=== PATIENT | female | born 1950 | race Caucasian/White ===

== ENCOUNTER 2016-10-01 17:22 | Observation (INO) ==
[2016-10-01] MEDS ORDERED: NS + KCL 20 MEQ 1,000 ML IV ONE (18:15)
[2016-10-01] MEDS ORDERED: TYLENOL PO PRN (18:59)
[2016-10-01] MEDS ORDERED: ZOFRAN IV PRN (18:59)
--- NOTE | 2016-10-01 19:38 | HISTORY AND PHYSICAL ---
CHIEF COMPLAINT: Dehydrated. HISTORY OF PRESENT ILLNESS: This is a 66-year-old white female that normally is fairly healthy. She recently, however, has had several recurrent urinary tract infections, She completed a course of Augmentin last week for documented UTI with Klebsiella pneumoniae sensitive to Augmentin. At the later end of her therapy, she developed frequent loose stools. Of note, this patient has had previous gastric jejunal bypass many years ago and is plagued with loose stools on a regular basis. Her loose stools persisted through last weekend through the holidays and subsequently was brought to my attention on the day of admission. Laboratory data revealed a BUN of 40, a creatinine of 4.5 and so she was subsequently admitted for IV fluids. She denies any systemic symptoms. She denies any headaches, passing out or fainting. No fever or chills. She does have the overall loose stools, but that is not unusual for her. She has had no melena or hematochezia. She has borderline on a creatinine of anywhere from 1.5 to 2 over the last several years. She did have a colonoscopy 03/27/2016 which revealed no polyps other then a tortuosity of the sigmoid and transverse colon. PAST MEDICAL HISTORY: She has a long history of recurrent atrial fibrillation, but has been in normal sinus rhythm now for the last many years. Severe osteoarthritis status post bilateral total knee replacements. Severe hammer toes of the feet, status post bilateral surgical correction, history of DVT/PTE many years ago. Long history of hypertension. Remote history of morbid obesity. As stated, status post original gastrojejunal obesity bypass surgery. She also has had a long history of malabsorption syndrome with deficiency in B12, B6, B1 , and magnesia as well as potassium. CURRENT MEDICATIONS: Warfarin 2.5 mg a day. Triamterene HCT 75/50 two at bedtime. Toprol-XL 25 mg. Uloric 40 mg a day. Klor-Con 20 mEq 2 a day. Calcium over the counter. Magnesium 400 mg over the counter. ALLERGIES: To no known drugs. SOCIAL HISTORY: She is a white female. She does not smoke or drink. She normally is very active. She has 2 children. Both grown. One granddaughter. PHYSICAL EXAMINATION:BP 110/78 , HR 75 , RR 16 , Tmp 97.5 GENERAL: Shows a well-developed, white female, slightly dried texture to the skin with increased tenting. HEENT: Tympanic membranes are clear. Pupils equally round, reactive. Fundi benign. Nasal mucosa is moist. Oropharynx is clear. NECK: Supple with flat jugular venous. LUNGS: Clear. HEART: With a regular rate and rhythm. She is not in atrial fibrillation today. ABDOMEN: Soft, nontender, no masses. Good femoral pulses. No bruits. MUSCULOSKELETAL/NEUROLOGIC: Intact with tenting of the skin. No peripheral edema, clubbing or cyanosis. LABORATORY DATA: Urinalysis: Specific gravity 1.020, 1+ blood, 20-30 red cells , 10-20 white cells, 1+ bacteria. Sodium 135, potassium 3.76, chloride 103, CO2 19, BUN of 40 , creatinine 4.5, glucose 110, liver enzymes are normal. White blood cell count was 12, hemoglobin and hematocrit 12 and 38, MCV of 90, platelets 409,000, 65 polys, 23 lymphs, PT 2.1. IMPRESSION: 1. Chronic kidney disease with acute exacerbation. Most likely prerenal in nature due to recent episode of diarrhea. 2. Must be concerned with possible C. Difficile. 3. Long history of hypertension. 4. Long history of atrial fibrillation. 5. Remote history of pulmonary thromboembolism/deep venous thrombosis. She is currently therapeutic on her international normalized ratio . PLAN: 1. We will admit to [facility] For IV fluid rehydration as an outpatient. 2. We will check stool cultures. 3. We will follow up with laboratory data following hydration. 4. We will hold her diuretic therapy. 5. We do have a culture of her urine pending. cc: MD RENETTA Zhu
[2016-10-01] MEDS ORDERED: DIFLUCAN PO ONE (20:23)
[2016-10-01] MEDS ORDERED: NS 1,000 ML IV PRN (21:00)
[2016-10-01] MEDS: ULORIC PO SCH (21:19)
[2016-10-01] MEDS: TOPROL XL PO SCH (21:19)
[2016-10-02 06:35] LABS: MANUAL DIFF NEEDED? NO
[2016-10-02 07:13] LABS: BASO% 0.3 % (0.0-0.8); HEMOGLOBIN 10.8 g/dL (12.0-16.0); IMM GRAN# 0.02 X1000 (0.0-0.04); IMM GRAN% 0.3 % (0.0-0.5); LYMPH# 1.43 X1000 (1.2-3.4); LYMPH% 21.2 % (20.5-51.1); MCH 28.4 PG (27-31); MCHC 31.8 g/dL (33-37); MCV 89.5 FL (81-99); MONO# 0.61 X1000 (0.11-0.59); MONO% 9.1 % (1.7-9.3); MPV 10.7 FL (7.4-10.4); NEUT% 66.1 % (42.2-75.2); PLT 254 X1000 (130-400)
[2016-10-02 07:29] LABS: INR 1.74 (0.86-1.15); PROTIME 20.5 Seconds (12.1-15.5)
[2016-10-02 07:48] LABS: CALCIUM 7.9 mg/dL (8.8-10.2); POTASSIUM 3.4 mmol/L (3.5-5.1); TOTAL BILIRUBIN 0.3 mg/dL (0.20-1.00); TOTAL PROTEIN 5.4 g/dL (6.3-8.3)
[2016-10-02] MEDS ORDERED: NS 1,000 ML IV PRN ×3 (08:22→20:55)
[2016-10-02] MEDS ORDERED: NS 1,000 ML IV ONE (08:30)
[2016-10-02 10:07] LABS: UR CREAT RANDOM 63.5 mg/dL (11-20)
--- NOTE | 2016-10-02 15:01 | Diag Imaging Result Doc PS360 ---
EXAM: US RENAL 2 (RETROPER) COMPLETE HISTORY: mayte/arf TECHNIQUE: Real-time transabdominal evaluation of the kidneys and bladder. COMPARISON: None. FINDINGS: Right kidney: 9.6 cm..centimeters in length. Renal echotexture is within normal limits.. There is no hydronephrosis or focal renal mass. There is a seven mm calculus right lower pole. Left kidney: 7.1 centimeters in length. Renal echotexture is within normal limits.. There is no hydronephrosis or focal renal mass. There is a 9 mm calculus left lower pole. Bladder: No focal abnormality is appreciated. IMPRESSION: Bilateral nephrolithiasis. No hydronephrosis. Electronically signed by Paula Yip 10/02/2016 2:59 PM
--- NOTE | 2016-10-02 15:02 | CONSULTATION ---
DATE OF CONSULTATION: 10/02/2016 REASON FOR ADMISSION: Dehydration and elevated creatinine. REASON FOR CONSULTATION: Acute kidney injury on CKD stage 3. CONSULTING PHYSICIAN: Dr. Albino Pulido. HPI: Ms Avila is a 66-year-old white female who has a history of renal insufficiency with a baseline creatinine noted at 1.5-2 over the last 6 years. Patient has recently had a history of documented urinary tract infection with Klebsiella pneumoniae which was sensitive to Augmentin. She was started on this last week and had finished her last dose on Wednesday. Patient stated that she developed loose stools by Wednesday and continued to have loose stools throughout the week and over the weekend, subsequently was brought to Dr. Pulido's attention that she had loose stools are for multiple days and labs were drawn indicating a BUN of 40 with a creatinine of 4.5. She was admitted to the hospital overnight from yesterday for admission for IV fluids and rehydration and potassium replacement. She denies any chest pain. No increased work of breathing. No recent falls. No complaints of headache, passing out or fainting. No nausea, vomiting. No fever or chills. Chronic loose stools for 7 days. No melena or hematochezia. Patient denies any pain at this time. PAST MEDICAL HISTORY: Patient has had chronic atrial fibrillation with alternating normal sinus rhythm and is on chronic anticoagulation therapy. She has osteoarthritis with post bilateral knee replacements, severe hammertoes of the feet status post bilateral surgical correction, history of a DVT with PTE many years ago. The patient states a long history of hypertension back when she was younger for greater then 25 years, remote history of morbid obesity, status post gastrojejunal obesity bypass surgery, she has chronic malabsorption syndrome with a deficiency of B12, B6, B1 and magnesium as well as potassium with replacements orally. SOCIAL HISTORY: She is . She lives with her spouse. She denies tobacco , alcohol or illicit drug use. She does work. She has children who are attentive to her care. 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 CURRENT ALLERGIES: No known drug allergies. HOME MEDICATIONS: Warfarin, triamterene/hydrochlorothiazide, Toprol, Uloric, K- Clor, calcium and magnesium [id number]. REVIEW OF SYSTEMS: Times 10 with pertinent positives listed above in the HPI. VITAL SIGNS: Her most recent vital signs, temperature 97.7 degrees, blood pressure 102/62, heart rate 78, respirations 17, she is on room air. Last recorded saturation is 100% . She has had 200 in. She has been voiding. This is not recorded. We will place her on a strict I and O. LABS: Sodium 135, potassium 3.7, chloride 103, CO2 19, BUN 40, creatinine 4.5, glucose 110. Her anion gap is 16.8, calcium 8.4. White count 12, hemoglobin 12.6, hematocrit 38.1, with a platelet count of 409,000. Her PT is 23.9 with an INR of 2.1. Urinalysis that was brought in indicated leukocytes with bacteremia, negative for proteinuria. Patient has had a stool culture which is negative for C. difficile. She has a renal ultrasound that is currently pending. Her urine electrolytes indicate a FENa score of 2.31%. PHYSICAL EXAMINATION: General: General: This is a 66-year-old white female. She is resting in bed. She is in no acute distress. Skin: Warm and dry. HEENT: Normocephalic , atraumatic. Conjunctivae pink. She has BEKAH. Mucous membranes moist. Neck: Supple. Trachea midline. No JVD. Cardiovascular: Regular rate and rhythm at this time. No murmur or gallop appreciated. Lungs: Clear to auscultation anteriorly. Equal excursion. Abdomen: Soft, nontender. Positive bowel sounds. Extremities: Have no edema. No clubbing or cyanosis. Neurological: She is alert and oriented x3. ASSESSMENT AND PLAN: 1. Acute renal failure on chronic kidney disease stage 3. Patient's baseline creatinine is 1.5-2 over the last several years. She has an elevated FENa score indicating that this is more intrarenal with possible acute tubular necrosis. We have ordered urine electrolytes. They are still pending. We have a renal ultrasound that is still pending. We will complete our workup. She is voiding adequately. We will continue to place her on a strict I's and O's so we can have this measured. She is not on any offending medications at this time. Her Augmentin has been stopped. No indications for intervention. We will continue to monitor daily labs. 2. Electrolytes and acid-base balance. These remain stable with potassium supplement ordered. Acidosis is mild secondary to #1. Continue to monitor and watch. 3. Anemia. This is at target. 4. Dehydration. Patient does continue to have loose stools. These have slowed down since her hospitalization. She continues with intravenous fluid resuscitation. 5. History of urinary tract infection with Klebsiella pneumoniae. We will recheck urinalysis today with reflux for culture. The other culture is still pending. I would like to thank you for allowing us to follow with this patient. Dictated by CARLOS Gayle for Werner Rivas MD Seen, data reviewed, discussed with Ritika Elkins on 10/02/16. I agree with the above assessment and plan of care. cc: CARLOS Gayle MD Rodney W. Harney, MD MTDD
[2016-10-02 20:24] LABS: CALCIUM 7.4 mg/dL (8.8-10.2); POTASSIUM 3.3 mmol/L (3.5-5.1)
[2016-10-02] MEDS ORDERED: NS + KCL 20 MEQ 1,000 ML IV ONE (20:57)
[2016-10-02] MEDS ORDERED: LOMOTIL PO ONE (21:00)
[2016-10-02] MEDS ORDERED: COUMADIN PO SCH (21:00)
[2016-10-02] MEDS ORDERED: WELCHOL PO ONE (21:02)
[2016-10-02] MEDS: ULORIC PO SCH (21:09)
[2016-10-02] MEDS ORDERED: LOMOTIL PO PRN (21:09)
[2016-10-02] MEDS: TOPROL XL PO SCH (21:09)
[2016-10-03 06:11] LABS: MANUAL DIFF NEEDED? NO
[2016-10-03 06:32] LABS: INR 1.46 (0.86-1.15)
[2016-10-03 06:46] LABS: BASO% 0.3 % (0.0-0.8); EOS# 0.21 X1000 (0.0-0.7); EOS% 3.3 % (0.0-10.0); HEMATOCRIT 31.7 % (37.0-47.0); HEMOGLOBIN 10.2 g/dL (12.0-16.0); IMM GRAN# 0.01 X1000 (0.0-0.04); IMM GRAN% 0.2 % (0.0-0.5); LYMPH# 1.84 X1000 (1.2-3.4); LYMPH% 28.8 % (20.5-51.1); MCH 29.1 PG (27-31); MCHC 32.2 g/dL (33-37); MCV 90.6 FL (81-99); MONO# 0.52 X1000 (0.11-0.59); MONO% 8.1 % (1.7-9.3); NEUT% 59.3 % (42.2-75.2); PLT 227 X1000 (130-400)
[2016-10-03 06:47] LABS: ALBUMIN 3.1 g/dL (3.5-5.0); CALCIUM 7.4 mg/dL (8.8-10.2); POTASSIUM 3.1 mmol/L (3.5-5.1)
[2016-10-03] MEDS ORDERED: KLOR-CON PO ONE (07:09)
[2016-10-03 07:52] VITALS: BP 109/53
[2016-10-03 10:10] LABS: URINE CULTURE PL NEEDED? NO
[2016-10-03 10:20] LABS: BILIRUBIN URINE NEGATIVE (NEGATIVE); BLOOD URINE NEGATIVE (NEGATIVE); CLARITY CLEAR (CLEAR); COLOR YELLOW; GLUCOSE URINE NEGATIVE (NEGATIVE); LEUKOCYTES URINE TRACE (NEGATIVE); NITRITE URINE NEGATIVE (NEGATIVE); PROTEIN URINE NEGATIVE (NEGATIVE); UROBILINOGEN URINE NORMAL
[2016-10-03 10:56] LABS: URINE EPITHELIAL CELLS >10 /HPF (<10); URINE SOURCE CLEAN CATCH
== END 2016-10-03 10:24 | disposition home or self-care (01) ==
LOC: P.DIRADM → P.MEDSURG 17:22
PROVIDERS: ADMIT Family Medicine; ATTEND Family Medicine

== ENCOUNTER 2019-07-04 15:14 | Inpatient (IN) ==
[2019-07-04] MEDS ORDERED: NS 1,000 ML IV PRN (15:20)
--- NOTE | 2019-07-04 16:43 | HISTORY AND PHYSICAL ---
CURRENT TIME: 16:00 hours. CHIEF COMPLAINT: Weak, elevated liver enzymes. HISTORY OF PRESENT ILLNESS: This is a 68-year-old white female, well known to me, that has several chronic medical problems. She does have known chronic renal disease for which she has seen Dr. Rivas. Her creatinine and at one point was up to 4 but did then it resolved and has stabilized down around the 1.9 to 2.4 levels. She has had a long history of atrial fibrillation. She had an original gastrojejunal obesity bypass surgery which has left her with a malabsorption syndrome, frequently being low on B12, 6, 1, and magnesium, as well as potassium. Long history of hypertension. She has also recurrent diarrhea believed to be due to dumping syndrome. Over the weekend, starting Wednesday evening she became nauseous and sick to her stomach. She began to vomit repeatedly on Wednesday. She contacted my office on Wednesday where she was evaluated here in my office. Her BUN and creatinine were 60 and 4.2 respectively. Her chloride was 107, potassium was 4.2, sodium was 138, blood sugar was 155. Alkaline phosphatase was found to be elevated at 257, GOT elevated at 359, GPT elevated at 329, total bilirubin was 4.4. Her white blood cell count was 9.5, hemoglobin and hematocrit 11 and 33 respectively with 72 segs. Her INR was 2.0. Urine demonstrated 2+ bilirubin, 10 to 20 white cells, 3+ bacteria, 1 to 5 epithelial cells. The patient did not wish hospitalization. Patient was sent to outpatient for infusion therapy and received 2 L of IV fluids on Wednesday. Overall her condition stabilized and she has had no further vomiting over the night. She was advised to come in today for repeat laboratory data. She still feels somewhat weak. She also has periods of chills. She has been able to retain fluids and has had no further vomiting since 03:00 hours Wednesday. LABORATORY DATA: Today revealed BUN of 67/creatinine of 4.1. Her total bilirubin had risen to 7.7. Her liver enzymes were lower with alkaline phosphatase of 177, GOT was 114, GPT 188. Her anion gap was 21. White blood cell count 10.6, hemoglobin and hematocrit 11 and 33, 88 polys. PAST MEDICAL HISTORY: Medical illnesses: Long history of atrial fibrillation, on chronic Coumadin therapy. She has been in normal sinus rhythm for the last many years. Severe osteoarthritis, status post bilateral total knee replacements. She has severe hammertoes and had hammertoe correction surgery of both feet. Long history of DVT as well as history of PTE many years ago and has been on chronic Coumadin therapy ever since. Long history of hypertension. Remote history morbid obesity. She has had a long history of malabsorption, as previously noted. CURRENT MEDICATIONS: Include Coumadin 2.5 mg a day, Lasix 40 mg p.r.n., triamterene HCT 75/50 one a day, metoprolol succinate 50 mg a day, potassium chloride 20 mEq q.i.d. ALLERGIES: No known drug allergies. SOCIAL HISTORY: She is a , white female. Two children. is employed. 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 PHYSICAL EXAMINATION: GENERAL: Shows a very frail, weakened white female. VITAL SIGNS: Blood pressure 90/50, pulse rate 120. She is afebrile. Weight is approximately 200 pounds. HEENT: TMs are clear. Pupils equal, round, reactive. Fundi are clear. Conjunctiva is white, nonicteric. Oropharynx is clear. NECK: Supple. LUNGS: Show clear breath sounds without wheeze, rales, rhonchi. HEART: With a slightly tachycardic rate but appears to be regular in rhythm. ABDOMEN: Soft and nontender. There are quiet bowel sounds. GENITOURINARY: Normal female. MUSCULOSKELETAL: Neurologically intact with no peripheral edema, clubbing, or cyanosis. She does have extreme tenting of the backs of her hands. IMPRESSIONS: 1. Clinically she certainly appears to be dehydrated. 2. She has had progressive hyperbilirubinemia of uncertain etiology. This is concerning for perhaps cholangitis. 3. Liver functions have actually improved since yesterday. 4. Renal function is consistent with chronic kidney disease and has actually stabilize. She still seems to be dry. 5. Long history of malabsorption syndrome due to previous obesity surgery. 6. Concerned that she may have early sepsis. PLAN: 1. We will obtain a lactate level. 2. Blood cultures. 3. Urine cultures. 4. IV Zosyn 3.375 mg q.6 hours. 5. We will obtain a CT of the abdomen and pelvis with oral contrast only, no IV contrast. 6. We will ask Dr. Blanchard to see in consultation. 7. We will watch her extremely cautiously. cc: Albino Pulido MD MTDPam
--- NOTE | 2019-07-04 16:48 | HISTORY AND PHYSICAL ---
ADDENDUM: SURGICAL HISTORY: Patient also has had a laparoscopic cholecystectomy some remote years ago. She had a negative colonoscopy 01/13/2018 with upper endoscopy by Dr. Anitha Babin, and things were normal. She had no colon polyps. She did have a slight candidal esophagitis. cc: Albino Pulido MD
[2019-07-04 17:13] LABS: URINE SOURCE CATH
[2019-07-04 17:16] LABS: BILIRUBIN URINE SMALL (NEGATIVE); BLOOD URINE TRACE (NEGATIVE); COLOR YELLOW; GLUCOSE URINE NEGATIVE (NEGATIVE); KETONE URINE TRACE mg/dL (NEGATIVE); LEUKOCYTES URINE SMALL (NEGATIVE); NITRITE URINE NEGATIVE (NEGATIVE); PH URINE 5.5; PROTEIN URINE 50 mg/dL (NEGATIVE); SP GRAVITY URINE 1.015; TURBIDITY URINE HAZY (CLEAR); UROBILINOGEN URINE 2 mg/dL (NORMAL)
[2019-07-04 17:29] LABS: UR EPITHELIAL CELLS <10 /HPF (<10); URINE BACTERIA 2+ /HPF; URINE RBC <10 /HPF (<10)
[2019-07-04] MEDS ORDERED: NS 1,000 ML IV SCH (17:30)
[2019-07-04 17:57] LABS: URINE CASTS NONE SEEN; URINE CRYSTALS NONE SEEN; URINE YEAST NONE SEEN
[2019-07-04] MEDS: ZOSYN 3.375 GM in NS 50 ML IV SCH ×2 (17:57→23:21)
[2019-07-04 18:10] LABS: BASO# 0.02 X1000 (0.0-0.2); BASO% 0.2 % (0.0-0.8); EOS# 0.01 X1000 (0.0-0.7); EOS% 0.1 % (0.0-10.0); HEMATOCRIT 29.6 % (37.0-47.0); HEMOGLOBIN 9.6 g/dL (12.0-16.0); IMM GRAN# 0.04 X1000 (0.0-0.04); IMM GRAN% 0.5 % (0.0-0.5); LYMPH# 0.64 X1000 (1.2-3.4); LYMPH% 7.8 % (20.5-51.1); MCHC 32.4 g/dL (33-37); MCV 92.5 FL (81-99); MONO# 0.55 X1000 (0.11-0.59); MONO% 6.7 % (1.7-9.3); NEUT# 6.98 X1000 (1.4-6.5); NEUT% 84.7 % (42.2-75.2); PLT 100 X1000 (130-400); RDW 15.3 % (11.5-14.5); WBC 8.24 X1000 (4.8-10.8)
[2019-07-04 18:19] LABS: INR 2.75; PROTIME 29.9 Seconds (11.0-16.0)
[2019-07-04 18:28] LABS: ALBUMIN 2.6 g/dL (3.5-5.0); CALCIUM 7.8 mg/dL (8.8-10.2); CREATININE 4.3 mg/dL (0.5-0.9); MAGNESIUM 1.5 mg/dL (1.5-2.7); POTASSIUM 3.5 mmol/L (3.5-5.1); TOTAL BILIRUBIN 6.3 mg/dL (0.20-1.00); TOTAL PROTEIN 5.2 g/dL (6.3-8.3)
--- NOTE | 2019-07-04 20:12 | Diag Imaging Result Doc PS360 ---
EXAM: US ABDOMEN-COMPLETE HISTORY: hyperbilirubinemia TECHNIQUE: Abdominal ultrasound COMPARISON: None. FINDINGS: Normal pancreatic body. Portions of the head and tail are obscured. No abdominal aortic aneurysm. Mild atherosclerosis. Normal inferior vena cava. There is fatty infiltration of the liver. No focal hepatic abnormality. The common bile duct measures 6 mm. The gallbladder has been removed. There are small renal cysts and there is bilateral renal atrophy. There is an 8 mm nonobstructing left renal stone. No ascites. The spleen measures 14.9 cm in length. IMPRESSION: 1.Cholecystectomy 2.Mild splenomegaly 3.Nonobstructing left renal stone Electronically signed by Fam Shearer 07/04/2019 8:10 PM
[2019-07-05] MEDS ORDERED: TOPROL XL PO ONE (00:39)
[2019-07-05] MEDS ORDERED: NS 1,000 ML IV SCH (01:00)
[2019-07-05] MEDS: TYLENOL PO PRN ×3 (01:18→14:57)
[2019-07-05] MEDS: ZOFRAN IV PRN (02:40)
[2019-07-05] MEDS: ZOSYN 3.375 GM in NS 50 ML IV SCH ×4 (04:57→23:48)
[2019-07-05 05:58] LABS: URINE SOURCE CATH
[2019-07-05 06:39] LABS: INR 3.55; PROTIME 36.7 Seconds (11.0-16.0)
[2019-07-05 06:41] LABS: EOS# 0.01 X1000 (0.0-0.7); EOS% 0.2 % (0.0-10.0); HEMATOCRIT 27.7 % (37.0-47.0); IMM GRAN# 0.02 X1000 (0.0-0.04); IMM GRAN% 0.3 % (0.0-0.5); LYMPH# 0.19 X1000 (1.2-3.4); LYMPH% 3.3 % (20.5-51.1); MCH 29.8 PG (27-31); MCHC 32.5 g/dL (33-37); MCV 91.7 FL (81-99); MONO# 0.25 X1000 (0.11-0.59); MONO% 4.3 % (1.7-9.3); MPV 12.6 FL (7.4-10.4); NEUT# 5.35 X1000 (1.4-6.5); NEUT% 91.9 % (42.2-75.2); PLT 75 X1000 (130-400); RBC 3.02 XMIL (4.2-5.4); RDW 14.9 % (11.5-14.5); WBC 5.82 X1000 (4.8-10.8)
[2019-07-05 06:43] LABS: BILIRUBIN URINE SMALL (NEGATIVE); BLOOD URINE SMALL (NEGATIVE); COLOR YELLOW; GLUCOSE URINE NEGATIVE (NEGATIVE); KETONE URINE NEGATIVE (NEGATIVE); LEUKOCYTES URINE SMALL (NEGATIVE); NITRITE URINE NEGATIVE (NEGATIVE); PROTEIN URINE 30 mg/dL (NEGATIVE); SP GRAVITY URINE 1.013; TURBIDITY URINE HAZY (CLEAR); UROBILINOGEN URINE NORMAL (NORMAL)
[2019-07-05 06:53] LABS: UR EPITHELIAL CELLS <10 /HPF (<10); URINE BACTERIA NEGATIVE /HPF; URINE RBC <10 /HPF (<10); URINE WBC <10 /HPF (<10)
[2019-07-05 06:54] LABS: URINE CASTS NONE SEEN; URINE CRYSTALS NONE SEEN; URINE SMALL ROUND CELLS NONE SEEN; URINE YEAST NONE SEEN
[2019-07-05 07:11] LABS: ALB/GLOB RATIO 1.1; ALBUMIN 2.6 g/dL (3.5-5.0); CALCIUM 7.3 mg/dL (8.8-10.2); CREATININE 4.3 mg/dL (0.5-0.9); POTASSIUM 3.8 mmol/L (3.5-5.1); TOTAL BILIRUBIN 7.15 mg/dL (0.20-1.00); TOTAL PROTEIN 4.9 g/dL (6.3-8.3)
[2019-07-05 07:13] LABS: LYMPHS 8 % (21-51); SEGS 86 % (42-75)
[2019-07-05] MEDS: COUMADIN PO SCH (07:53)
--- NOTE | 2019-07-05 09:44 | Diag Imaging Result Doc PS360 ---
EXAM: CT ABD/PELVIS W/ORAL CONT ONLY INDICATION: hyperbilirubinemia TECHNIQUE: This exam was performed using automated exposure control, adjustment of mA or kV according to patient size, and/or use of iterative reconstruction technique. COMPARISON: None. FINDINGS: There is mild subsegmental atelectasis at both lung bases. There has been a prior cholecystectomy. There is mild intrahepatic and extrahepatic biliary dilatation. The common bile duct measures approximately 9 mm in diameter by CT. This is probably, at least in part, due to postcholecystectomy status. There is a 9.7 mm hypodense focus associated with the head of the pancreas that is very near the expected site of the ampulla. It is unclear if this is a collection of oral contrast in a widened ampulla, layering contrast in a duodenal diverticulum, or a stone in the distal common bile duct just proximal to the ampulla. Correlation with MRCP or ERCP may be helpful to determine this. No pancreatic mass is appreciated as imaged with unenhanced CT. Aside from the mild intrahepatic biliary dilatation, the liver is grossly unremarkable as imaged. The spleen is slightly prominent measuring up to 13.4 cm craniocaudally. The adrenal glands are unremarkable. There is a 1 cm hypodense nodule at the inferior aspect of the right kidney, nonspecific but statistically most likely a blood filled or protein filled cyst. There is bilateral nonobstructive nephrolithiasis. The largest stone is on the left measuring up to 3.4 cm axially. There are no discrete ureteral stones and there is no evidence of hydronephrosis. There is a Rodas catheter in the urinary bladder and the bladder is nondistended. The reproductive tract is grossly unremarkable as imaged. There are a few sigmoid colonic diverticula but there is no evidence of diverticulitis. There is a right femoral hernia that contains only fat. No definite bowel wall thickening is appreciated there is no evidence of bowel obstruction. The remainder of the GI tract is essentially unremarkable. There are spinal degenerative changes. There is no evidence of acute osseous abnormality. IMPRESSION: 1.Mild intrahepatic and extrahepatic biliary dilatation that is, at least in part, due to postcholecystectomy status. However, there is a hyperdense focus in the pancreatic head near the ampulla. It is possible that this represents a ductal stone. Please see above discussion. 2.Nonobstructive nephrolithiasis. 3.Other incidental/nonacute findings detailed above. Electronically signed by Ryan Muniz 07/05/2019 9:42 AM
[2019-07-05] MEDS: WELCHOL PO SCH ×2 (11:23→23:48)
[2019-07-05] MEDS: LOMOTIL PO SCH ×2 (11:23→23:48)
[2019-07-05] MEDS: NS 1,000 ML IV SCH (11:24)
--- NOTE | 2019-07-05 12:15 | PROGRESS NOTE ---
DATE: 07/05/2019 CURRENT TIME: 1150 hours. CHIEF COMPLAINT: Feels better, wants the catheter out. VITAL SIGNS: T-max 98.1 degrees, heart rate 88, respirations 16, blood pressure 114/92, O2 saturation is 97% on room air. Urine output overnight 425 mL. Total IV fluids 833 mL. IMAGING AND LABORATORY DATA: White blood count 5.82, hemoglobin and hematocrit 9 and 27.7 respectively. Polys: Neutrophils 91.9%. Sodium 135, potassium 3.8, chloride 104, CO2 of 15, anion gap is 16, BUN is 66, creatinine 4.3, calcium 7.3, adjusted for low albumin of 9.3, total bilirubin 7.15, AST 66, ALT 125, alkaline phosphatase 134, total protein 4.9, albumin 2.6. Amylase 16, lipase 18. Plasma lactate 0.9%. CT of the abdomen and pelvis reveals mild intrahepatic and extrahepatic biliary dilatation, possibly due to previous cholecystectomy. However, there is a hyperdense focus in the pancreatic head near the ampulla, possibly representing a retained common duct stone. There is also a stone in the right kidney, 1 cm, and 3.4 cm in the left kidney. There is no evidence of hydronephrosis. Sonogram last evening revealed history of cholecystectomy, mild splenomegaly, nonobstructing left renal stone, the pancreatic body appeared to be normal, the tail and head were not visible, there is fatty infiltrate of the liver, common bile duct measured 6 mm last evening. PHYSICAL EXAMINATION: General: The patient is awake, alert, and oriented. She looks much better. HEENT: Conjunctiva is nonicteric. Lungs: Clear. Heart: Regular rate and rhythm. Abdomen: Soft, nontender. There is no rebound. There are active bowel sounds. : Rodas is in place, draining leigh ann urine. Musculoskeletal/Neurologic: She shows no peripheral edema, clubbing, or cyanosis. IMPRESSION: 1. Hyperbilirubinemia appears to be related to obstruction of the common bile duct via a stone in the ampulla. 2. History of chronic renal disease with acute exacerbation. Creatinine is still elevated even after hydration at 4.3. 3. Hypoproteinemia. 4. Calcium adjusted for albumin is normal. 5. Liver enzymes have declined from admission. Total bilirubin, as stated, has gone from 6.3 to 7.15. 6. Preliminary 24-hour urine cultures revealed gram-negative bacteria. PLAN: 1. Dr. Blanchard from Gastroenterology will see her in consultation. She will most likely need ERCP. 2. Dr. Werner Adkins will see the patient regarding her renal failure. 3. We will continue Zosyn. 4. Will continue Zosyn pending the outcome of the sensitivity and identification of the bacteria. The Zosyn should cover gram-negative cayden without difficulty. Clinically, she seems to be improving. 5. We will remove the Rodas today. 6. Will encourage hydration. cc: Albino Pulido MD
[2019-07-05] MEDS ORDERED: VITAMIN K 10 MG in NS 50 ML IV ONE (13:07)
--- NOTE | 2019-07-05 13:25 | NEPHROLOGY CONSULTATION ---
DATE: 07/05/2019 REASON FOR CONSULTATION: Acute kidney injury. HISTORY OF PRESENT ILLNESS: Ms. Avila is a 68-year-old, white female with a history of a gastrojejunal bypass surgery many, many years ago. She has known chronic kidney disease with baseline creatinine at approximately 2.5. She has seen us in the office about a year ago but did not follow up. Small kidneys by ultrasound at that time. Creatinine ranges from about 2.5 to as much as 4. She came into the hospital because of volume contraction, a common bile duct stone. She was treated with IV fluids, IV antibiotics. Evaluation by GI included a CT which demonstrated mild intrahepatic and extrahepatic bile duct dilation, and a hyperdense focus in the pancreatic head, all suggestive of a common duct stone. ERCP is planned. PAST MEDICAL HISTORY: As above. She also takes chronic anticoagulation, warfarin. Chronic osteoarthritis. CURRENT MEDICATIONS: Include warfarin, normal saline, acetaminophen, Welchol, Lomotil, ondansetron, Zosyn, metoprolol. ALLERGIES: None. 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 FAMILY HISTORY: Noncontributory. REVIEW OF SYSTEMS: Noncontributory. PHYSICAL EXAMINATION: Vital Signs: Blood pressure 106/42, heart rate 62, respirations 16, afebrile. General: Obese, white female lying in bed. No acute distress. Skin is warm and dry. Conjunctivae are pink. Pupils are equal. Oropharynx is dry. Neck: Neck veins are not appreciated. Trachea is midline. Heart: PMI is not palpable. Regular rate and rhythm, without gallops. Lungs: Have equal breath sounds. No crackles or wheezes. Abdomen: Obese, soft, nontender. Bowel sounds are present. No organomegaly or masses. Extremities: No edema, clubbing, or cyanosis. IMPRESSION: Acute kidney injury overlying chronic kidney disease. Baseline creatinine around 2.5 but reality is that her glomerular filtration rate is only modestly changed from baseline, baseline probably around 20-25. Continue intravenous fluids. I have reviewed her medications and no changes are required. She does have a moderate metabolic acidosis. If this does not improve overnight, then we will change her intravenous fluids. Check urine electrolytes. cc: MD Albino Davidson MD
--- NOTE | 2019-07-05 14:01 | GASTROENTEROLOGY CONSULTATION ---
DATE: 07/05/2019 REASON FOR CONSULTATION: Hyperbilirubinemia. HISTORY OF PRESENT ILLNESS: Ms. 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 The patient has complained of nausea and vomiting with chills and shortness of breath, and she also mentioned that she has been having watery bowel movements for the last 3 months onwards. Patient had an EGD/Colonoscopy done by Dr. Babin on 01/13/2018, her colonoscopy was normal. EGD showed mild esophageal stricture, dilation was performed. Antral biopsy revealed chronic superficial gastritis w/o hemorrhage and positive for H-pylori. Patient never got the H- pylori treated. PAST MEDICAL HISTORY: Hypertension, atrial fibrillation, chronic renal disease, history of pulmonary embolism, morbid obesity, malabsorption. PAST SURGICAL HISTORY: Cholecystectomy, appendectomy, tubal ligation, gastric bypass, knee replacements bilaterally, and bilateral feet surgery. ALLERGIES: No known drug allergies. SOCIAL HISTORY: The patient is , has 2 kids. Denies any tobacco use, illicit drug use or alcohol use. FAMILY HISTORY: No significant GI malignancies. HOME MEDICATIONS: Home medications are Coumadin 2.5 mg at bedtime, Lasix 40 mg as needed, triamterene/hydrochlorothiazide 75/50 one tablet daily, metoprolol succinate 50 mg daily, potassium chloride 20 mEq daily and Ozempic. REVIEW OF SYSTEMS: As per HPI, otherwise 12 point review of system is negative. PHYSICAL EXAMINATION: Vital Signs: Temperature 97.8 degrees, pulse 62, respirations 16, blood pressure 106/42, oxygen saturation 100% on room air. The patient's weight is 192 pounds. BMI is 27.6 kg/m2. General: She is alert, oriented x3, in no acute distress. The patient is obese, answering questions appropriately. HEENT: Pale conjunctivae. No icterus. PERRL. Neck: Supple. Lungs: Clear to auscultation. Cardiovascular: Regular rate and rhythm. Abdomen: Soft, nontender, obese. Hypoactive bowel sounds heard in all 4 quadrants. Extremities: No clubbing, no cyanosis. Generalized edema in the lower extremities. Pedal pulse is present bilaterally. Neurologic: Alert and oriented x3. Nonfocal. Cranial nerves 2-12 grossly intact. LABS: WBCs of 5.82, RBCs 3.02, hemoglobin 9.0, hematocrit 27.7, platelet count is 75,000. PT is 36.7, INR is 3.55. Sodium is 135, potassium 3.8, chloride 104, anion gap 15. BUN 16, creatinine is 66. Sodium 135, potassium 3.8, chloride 104, carbon dioxide 15, anion gap 16. BUN 66, creatinine is 4.3, glucose is 94, calcium is 7.3. Total bilirubin is 7.15, AST 66, ALT 125, alkaline phos 134, albumin is 2.6. IMAGING: Abdominal ultrasound shows cholecystectomy, mild splenomegaly, nonobstructing left renal stone. Abdomen and pelvis CT has shown mild intrahepatic and extrahepatic biliary dilation that is at least in part due to post cholecystectomy status. Hypodense focus in the pancreatic head near the ampulla. It is possible that this represents a ductal stone, nonobstructive nephrolithiasis. IMPRESSION AND PLAN: - Ascending cholangitis - Biliary obstruction - AFIB - History of DVT/PE - Coagulopathy - CKD - History of gastric bypass - Anemia, unspecified - Thrombocytopenia PLAN: Ms. Avila is a 68-year-old female with a history of chronic renal disease and atrial fibrillation. GI has been consulted for hyperbilirubinemia. The patient's CT scan has shown that she has some intrahepatic and extrahepatic biliary dilation, and hypodense focus in the pancreatic head near the ampulla, possibly representing a ductal stone. We plan to do ERCP tomorrow. Discussed the risks, benefits, and alternatives of the procedure to the patient. The patient is currently receiving antibiotic Zosyn. She is on IV fluids normal saline at 70 mL. The patient is receiving Zofran antiemetic for nausea and vomiting. She is also receiving vitamin K for her elevated INR. We will continue to monitor the patient. Further plan of care, which will be based on the ERCP findings. This plan was discussed with Dr. Blanchard. Thank you for your consult. Please call us for any further questions or concerns. Dictated by CARLOS Ortega for Aguila Blanchard MD cc: Albino Pulido MD Physician Attestation I have seen and examined the patient. I have discussed and reviewed the note by Kari GONZALEZ and agree with findings and plan as documented. In brief, Ms. Avila is a 68 year old woman with history of RYGB, Afib, h/o DVT/PE on coumadin, CKD, prior ERCP with sphincterotomy in past who presented with N/V, diarrhea, and SOB found to have cholestatic pattern liver injury. CT shows biliary obstruction with possible ductal stone in the distal CBD. She is bacteremic with GNR concerning for ascending cholangitis. She is on zosyn. Her is on anticoagulation. Trending LFTs. Will need to reverse prior to ERCP for goal INR <=1.5. Dr. Babin will attempt ERCP on . Her RYGB anatomy may be prohibitive. Will follow closely. RENETTA
[2019-07-05 16:49] LABS: UR CREAT RANDOM 47.4 mg/dL (11-20)
[2019-07-06] MEDS: COUMADIN PO SCH ×2 (03:45→20:21)
[2019-07-06] MEDS: ZOSYN 3.375 GM in NS 50 ML IV SCH ×3 (05:47→20:21)
[2019-07-06] MEDS: NS 1,000 ML IV SCH (05:47)
[2019-07-06 07:58] LABS: INR 1.16
[2019-07-06 07:59] LABS: EOS# 0.04 X1000 (0.0-0.7); EOS% 0.8 % (0.0-10.0); HEMATOCRIT 24.7 % (37.0-47.0); HEMOGLOBIN 8.1 g/dL (12.0-16.0); LYMPH# 0.57 X1000 (1.2-3.4); LYMPH% 11.3 % (20.5-51.1); MCH 29.7 PG (27-31); MCHC 32.8 g/dL (33-37); MCV 90.5 FL (81-99); MONO# 0.72 X1000 (0.11-0.59); MONO% 14.3 % (1.7-9.3); NEUT# 3.72 X1000 (1.4-6.5); NEUT% 73.6 % (42.2-75.2); PLT 63 X1000 (130-400); RBC 2.73 XMIL (4.2-5.4); RDW 14.9 % (11.5-14.5); WBC 5.05 X1000 (4.8-10.8)
[2019-07-06 08:07] LABS: ALBUMIN 2.1 g/dL (3.5-5.0); CALCIUM 7.9 mg/dL (8.8-10.2); CREATININE 4.7 mg/dL (0.5-0.9); MAGNESIUM 1.7 mg/dL (1.5-2.7); PHOSPHORUS 3.9 mg/dL (2.7-4.5); POTASSIUM 3.4 mmol/L (3.5-5.1); TOTAL BILIRUBIN 7.61 mg/dL (0.20-1.00); TOTAL PROTEIN 4.3 g/dL (6.3-8.3)
--- NOTE | 2019-07-06 09:07 | NEPHROLOGY PROGRESS NOTE ---
DATE: 07/06/2019 SUBJECTIVE: No new complaints today. Urine output is normal by her estimation. No shortness of breath, nausea, vomiting, abdominal pain, etc. OBJECTIVE: Vital Signs: Blood pressure 114/54, heart rate 55, respirations 18, afebrile. Intake 2.4 L, output 400 mL, but this is incomplete. General: No acute distress. Skin: Somewhat jaundiced, but dry. No changes. HEENT: Conjunctivae are pink. Neck: Neck veins are not distended. Heart: Regular with soft S4. No murmurs. Lungs: Equal. No crackles. Abdomen: Soft, nontender. No organomegaly. Normal bowel sounds. Extremities: No edema, clubbing, or cyanosis. IMPRESSION: 1. Acute kidney injury overlying chronic kidney disease. Creatinine 4.7 today with BUN 64. On balance. No significant change from yesterday. Baseline creatinine 2.5 to 3. No indications for dialysis. 2. Metabolic acidosis. I will change her intravenous fluids from normal saline to bicarbonate- containing fluids at 100 mL an hour. 3. Electrolytes are in target. 4. Okay to proceed with endoscopic retrograde cholangiopancreatography from Nephrology perspective. cc: MD Albino Davidson MD
[2019-07-06 09:13] LABS: ANISOCYTOSIS 1+; BURR CELLS 1+; EOS 1 % (1-10); HYPOCHROM 1+; LARGE PLATELETS 1+; LYMPHS 11 % (21-51); MONO 14 % (1-9); POIKILOCYTOSIS 1+; SEGS 74 % (42-75)
[2019-07-06] MEDS: WELCHOL PO SCH ×2 (10:02→20:21)
[2019-07-06] MEDS: LOMOTIL PO SCH ×2 (10:02→20:21)
[2019-07-06] MEDS: SODIUM BICARBONATE 8.4% 150 MEQ in D5W 1,000 ML IV SCH (10:03)
[2019-07-06] MEDS ORDERED: DIPRIVAN 1% ONE ×2 (12:09→12:47)
--- NOTE | 2019-07-06 13:33 | OPERATIVE NOTE ---
PROCEDURE DATE: 07/06/2019 PROCEDURE PERFORMED: Endoscopic retrograde cholangiopancreatography, sphincterotomy, stone extraction, and stent placement. PREOPERATIVE DIAGNOSIS: Cholangitis. POSTOPERATIVE DIAGNOSIS: Common bile duct stone, retrieved. DESCRIPTION OF PROCEDURE: After informed consent and adequate intravenous sedation, the scope was introduced to the esophagus. There was mild esophageal stenosis which was slightly dilated and the scope was passed. The antrum is normal. In the duodenum, there are extensive superficial erosions. 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 There is no significant bile seen. The pancreatogram was normal. At this point, cholangiogram was done. Patient does have a single stone in the common bile duct. At this point, a guidewire was passed and the stone was extracted using a balloon. The common bile duct was lavaged. At this point, a 10-Persian, 5 cm stent was deployed. The scope was withdrawn. The patient tolerated the procedure well without any immediate complications. cc: MD Albino Nogueira MD
--- NOTE | 2019-07-06 13:40 | Diag Imaging Result Doc PS360 ---
EXAM: ERCP-BILIARY AND PANCREATIC HISTORY: HYPERBILIRUBIN TECHNIQUE: Nine views COMPARISON: None. FINDINGS: Contrast fills the common bile duct. There are air bubbles or stones distally. A wire was placed with a stent placed over the wire. Wire was then removed. IMPRESSION: Common bile duct stent placed. Electronically signed by Fam Shearer 07/06/2019 1:38 PM
[2019-07-06] MEDS: TYLENOL PO PRN ×2 (15:25→19:22)
[2019-07-06 16:28] LABS: INR 1.05; PROTIME 13.8 Seconds (11.0-16.0)
--- NOTE | 2019-07-06 18:33 | PROGRESS NOTE ---
DATE: 07/06/2019 Current time is 1640 hours. CHIEF COMPLAINT: Feels well.Vital signs: Temperature is afebrile, heart rate 60, respirations 16, blood pressure 103/48, O2 saturations 97% on room air. I O was urine output for the previous 24 hours 400 mL. Oral intake approximately 25% of soft meals. She is voided at least 3 times undocumented. LABORATORY DATA: White blood count was 5.05. Hemoglobin 8.1 and hematocrit 24.7, MCV is 90.5. Platelets had dropped to 63,000. Chemistry: Sodium 139, potassium 3.4, chloride 109, CO2 12. BUN and creatinine 64 and 4.7 respectively. Iron 38, which is low. Total bilirubin 7.63. AST 58, ALT 87, alkaline phosphatase 123, total protein 4.3, albumin 2.1. Cultures: Blood cultures showing gram-negative cayden. ID not available. The sensitivity not available yet. PHYSICAL EXAMINATION: General: The patient is awake and alert. She has a little bit of an icteric look today. She responds appropriately to questions. Lungs: Clear. Heart: With regular rate and rhythm. No murmur or gallop. Abdomen: Soft, nontender, no masses. Good femoral pulses. No bruits. Musculoskeletal/Neurologic: Intact with no peripheral edema, clubbing or cyanosis. IMPRESSION: 1. Obstructive common bile duct with hyperbilirubinemia. She underwent ERCP today. Apparently was successful by history. I do not have confirmation of that. 2. Thrombocytopenia, receiving a unit of platelets now. 3. Chronic kidney disease with acute exacerbation. Dr. Rivas changed her IV fluids to sodium bicarbonate. She remained slightly acidotic. Her CO2 was 12. Her anion gap 18. 4. She was somewhat septic although her lactate level was normal. She remains on Zosyn and seems to be responding well to this. PLAN: 1. Will continue current medicines, Zosyn particularly. 2. Will advance diet per Dr. Babin. 3. She will complete the platelets. 4. We will obtain lab work in the morning to assess her hyperbilirubinemia and platelets. 5. Will encourage of physical therapy and out of bed and walking. 6. Will continue Zosyn until we have evidence of oral antibiotics that we can change to. 7. Long discussion was had with the patient and answered her questions. cc: Albino Pulido MD
[2019-07-06] MEDS: PRILOSEC PO SCH (20:21)
[2019-07-06] MEDS: ZOFRAN IV PRN (20:53)
[2019-07-07] MEDS: ZOSYN 3.375 GM in NS 50 ML IV SCH ×4 (03:21→21:39)
[2019-07-07] MEDS: PRILOSEC PO SCH ×2 (06:11→21:39)
[2019-07-07] MEDS: SODIUM BICARBONATE 8.4% 150 MEQ in D5W 1,000 ML IV SCH ×2 (06:11→13:21)
[2019-07-07 06:36] LABS: INR 0.99; PROTIME 13.1 Seconds (11.0-16.0)
[2019-07-07 06:37] LABS: BASO# 0.01 X1000 (0.0-0.2); BASO% 0.2 % (0.0-0.8); EOS# 0.11 X1000 (0.0-0.7); EOS% 2.3 % (0.0-10.0); HEMATOCRIT 25.1 % (37.0-47.0); HEMOGLOBIN 8.3 g/dL (12.0-16.0); IMM GRAN# 0.03 X1000 (0.0-0.04); IMM GRAN% 0.6 % (0.0-0.5); LYMPH# 1.04 X1000 (1.2-3.4); LYMPH% 22.2 % (20.5-51.1); MCH 29.4 PG (27-31); MCHC 33.1 g/dL (33-37); MONO# 0.54 X1000 (0.11-0.59); MONO% 11.5 % (1.7-9.3); MPV 12.2 FL (7.4-10.4); NEUT# 2.96 X1000 (1.4-6.5); NEUT% 63.2 % (42.2-75.2); PLT 77 X1000 (130-400); RBC 2.82 XMIL (4.2-5.4); RDW 15.2 % (11.5-14.5); WBC 4.69 X1000 (4.8-10.8)
[2019-07-07] MEDS ORDERED: COUMADIN PO ONE (07:09)
[2019-07-07 07:19] LABS: ALB/GLOB RATIO 0.9; ALBUMIN 2.1 g/dL (3.5-5.0); CREATININE 4.9 mg/dL (0.5-0.9); MAGNESIUM 1.6 mg/dL (1.5-2.7); POTASSIUM 3.3 mmol/L (3.5-5.1); TOTAL BILIRUBIN 5.21 mg/dL (0.20-1.00); TOTAL PROTEIN 4.4 g/dL (6.3-8.3)
[2019-07-07] MEDS: WELCHOL PO SCH ×2 (09:02→21:40)
[2019-07-07] MEDS: LOMOTIL PO SCH ×2 (09:02→21:40)
--- NOTE | 2019-07-07 09:26 | PROGRESS NOTE ---
DATE: 07/07/2019 CHIEF COMPLAINT: "Weak on my left side." SUBJECTIVE: Patient called me at home indicating that she had noticed a weakness on her left side. VITAL SIGNS: Temperature is 97.6 degrees, pulse 66, respirations 18, blood pressure 107/53. O2 saturation 100% on room air. Urine output overnight 500 mL. LABORATORY DATA: White blood cell count 4.69, hemoglobin and hematocrit 8.3 and 25.1 respectively. Platelets 77,000. Chemistry: Sodium 139, potassium 3.3, chloride 106, CO2 of 16. BUN of 61, creatinine 4.9, calcium 8.0. Total bilirubin 5.21; yesterday was 7.61. AST 45, ALT 71, alkaline phosphatase 94. Total protein 4.4 and albumin 2.1. IMAGING STUDIES: ERCP yesterday revealed successful removal of common bile duct stone. PHYSICAL EXAMINATION: General: Shows a well-developed, white female, with a dulled facial affect. Face is symmetrical. Good smile. Moves eyes in all directions. Tongue is midline. Lungs: Clear. Heart: With a regular rate and rhythm. Abdomen: Soft, nontender. Musculoskeletal: Shows approximately 3/5 motor strength of the left upper extremity. 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 In the left lower extremity, she has abduction of the hip approximately 2/5. She has approximately 2/5 dorsiflexion of the foot. IMPRESSION: 1. A 68-year-old, white female, with multiple risk factors for cerebrovascular accident. Long history of atrial fibrillation on chronic Coumadin therapy. Her Coumadin was held for 24 hours for her endoscopic retrograde cholangiopancreatography yesterday. Patient apparently did not receive her evening dose last night. She currently appears to have had an event, either cerebrovascular accident versus transient ischemic attack involving the left side. 2. Common bile duct obstruction seems to have been corrected with endoscopic retrograde cholangiopancreatography. Her bilirubin has declined appropriately. 3. Chronic kidney disease with acute exacerbation. Creatinine has actually inched up from 4.7 to 4.9. Urine output remains good. 4. Her acidosis has corrected somewhat with the change in intravenous fluids. Her CO2 is 16. PLAN: 1. Will get a stat CT of the head without contrast. If there is no evidence for hemorrhage, we will give Lovenox. I do not believe she would be a candidate for tPA. 2. We will monitor her heart for atrial fibrillation. 3. We will continue her current bicarbonate IV fluids per Dr. Rivas. 4. Will advance diet appropriately. 5. We will need to watch carefully for deterioration in her overall condition. cc: Albino Pulido MD
--- NOTE | 2019-07-07 09:48 | Diag Imaging Result Doc PS360 ---
EXAM: CT HEAD W/O CONTRAST 07/07/2019 HISTORY: encephalopathy TECHNIQUE: This exam was performed using automated exposure control, adjustment of mA or kV according to patient size, and/or use of iterative reconstruction technique. COMMENT: There is no evidence of mass effect, bleed, abnormal extra-axial fluid collection, or hydrocephalus. There is hyperostosis frontalis interna. The visualized paranasal sinuses are clear. IMPRESSION: No evidence of acute intracranial disease. Electronically signed by Vineet Barrera 07/07/2019 9:45 AM
--- NOTE | 2019-07-07 10:19 | PROGRESS NOTE ---
DATE: 07/07/2019 ADDENDUM: The patient received CT of the head without contrast. There is no evidence of intracranial bleed. Symptomatology has improved. She now has 5/5 motor strength of the left upper extremity. She has approximately 4/5 strength in the left lower extremity. She is now complaining of discomfort in the left medial quadriceps area. She does have a previous history of DVT and PTE. PLAN: 1. We will obtain carotid Doppler flow studies. 2. Echocardiogram. 3. Doppler flow study of the lower extremities. 4. She will receive Lovenox and oral Coumadin. 5. Physical Therapy will see the patient in consultation as well. 6. We will start oxygen. 7. She will be on telemetry monitoring. cc: Albino Pulido MD
--- NOTE | 2019-07-07 11:19 | PROVIDER PROGRESS NOTE ---
Progress Note S: No acute overnight events. No N/V/F, CP, SOB. She reports some mild abdominal discomfort diffusely. +BMs. No rectal bleeding. O: Last Vital Signs Temp 97.6 F 07/07/19 07:35 Pulse 74 07/07/19 10:40 Resp 18 07/07/19 07:35 BP 107/53 07/07/19 07:35 Pulse Ox 100 07/07/19 07:35 Height 5 ft 10 in Weight 192 lb 4 oz GEN: awake, alert, NAD HEENT: +icterus, EOMI, MMM NECK: supple, no JVD PULM: CTAB, no wheezing CV: RRR, no murmurs ABD: soft NT/ND, NABS EXT: no cce NEURO: nonfocal LABS: 07/07/19 07/07/19 07/07/19 06:10 06:10 06:10 WBC 4.69 L Hgb 8.3 L Plt Count 77 L PT 13.1 Sodium 139 Potassium 3.3 L Chloride 106 Carbon Dioxide 16 L Anion Gap 17 BUN 61 H Creatinine 4.9 H Total Bilirubin 5.21 H AST 45 H ALT 71 H Alkaline Phosphatase 94 Total Protein 4.4 L Albumin 2.1 L PROBLEM LIST: - Ascending cholangitis s/p ERCP with stone removal - Choledocholithiasis - GNR bacteremia - CKD - AFIB - History of gastric bypass - Anemia of chronic disease - Thrombocytopenia A/P: Ms. Avila is a 68 year old woman with history of RYGB, Afib, h/o DVT/PE on coumadin, CKD, prior ERCP with sphincterotomy who presented with ascending cholangitis with GNR bacteremia 2/2 to choledocholithiasis s/p ERCP with stone removal and stent placement. She is on zosyn. She is on anticoagulation. Will trend LFTs daily; currently down-trending. Tolerating solid diet and having bowel movements. She will need repeat ERCP in 6 weeks for stent removal. Will follow with you. Please call with questions.
--- NOTE | 2019-07-07 11:54 | NEPHROLOGY PROGRESS NOTE ---
DATE: 07/07/2019 SUBJECTIVE: She is lying flat in bed. No shortness of breath. She tolerated her procedure well, and she has been able to eat without difficulty. No shortness of breath. OBJECTIVE: Vital Signs: Blood pressure 107/53, heart rate 74, respirations 18, and afebrile. General: No acute distress. Perhaps less jaundiced. Neck: No neck vein distention. IMPRESSION: Acute kidney injury overlying chronic kidney disease. BUN and creatinine are roughly the same today. Creatinine is 4.9 with BUN 61. Her rise in BUN and creatinine may simply be related to decreased nephron capacity to accommodate her acute illness as opposed to overt acute tubular necrosis though she is certainly at risk for this. Good urine output. She is in positive fluid balance of 3 L. Electrolytes are acceptable. She does have a metabolic acidosis though this is stable, and likely related to her renal disease. I started IV fluids with sodium bicarbonate yesterday at 100 mL an hour. Continue same treatment. No changes. cc: MD Albino Davidson MD
[2019-07-07] MEDS: LOVENOX SUBQ SCH ×2 (13:31→21:39)
[2019-07-07] MEDS ORDERED: DECADRON IV ONE (18:54)
--- NOTE | 2019-07-07 19:18 | PROGRESS NOTE ---
DATE: 07/07/2019 CURRENT TIME: 1855 hours. This is a follow-up evaluation from earlier in the day. CHIEF COMPLAINT: Still weak on the left side. VITAL SIGNS: Temperature is 97.6 degrees pulse is 78 and regular. Respirations 16 and nonlabored. Blood pressure 112/48, and O2 saturation is 100 percent to 97 percent on room air. Urine output has been approximately 800 mL an hour. STUDIES: Preliminary findings of carotid flow studies revealed less than 40% stenosis bilaterally. There is no evidence of DVT of the left leg or on the legs by Doppler venous flow study. These are not complete readings, preliminary readings. PHYSICAL THERAPY: Physical Therapy did get the patient out of bed. Stood with assistance. She did have a tendency to the lean to the left. PHYSICAL EXAMINATION: General: The patient is awake. She responds appropriately to questions. She seems to have normal facial symmetry. She speaks in a very dulled flattened tone and a very dull flattened affect. She does ask questions. Neurologic: Her left upper arm it is now approximately 4/5 in the biceps, triceps, and forearm. She has approximately 5/5 insole doubler strength in the left hand. The left lower extremity, however, is 0/5 movement. She has no ability to use the left lower extremity. IMPRESSION: 1. Neurologically, the left lower extremity seems to have deteriorated versus the rest of her deficiencies have improved. Her speech and responses have improved. Her left upper extremity is improved, but the left lower extremity has weakened. 2. She has no evidence for significant carotid stenosis. 3. She has no evidence for deep venous thrombosis. 4. She certainly appears to be in normal sinus rhythm. 5. Chronic renal failure with acute exacerbation is stable. She continues to have good urinary output. PLAN: 1. We will obtain an MRI of the brain without contrast tomorrow. 2. We will continue physical therapy. 3. I will give her a single dose of dexamethasone 20 mg IV tonight. 4. I have discussed this with her in detail. 5. I will discuss this with her family via phone. cc: Albino Pulido MD
[2019-07-07] MEDS: COUMADIN PO SCH (21:42)
--- NOTE | 2019-07-07 22:29 | ECHO REPORT ---
ORDER DATE: 07/07/2019 MEASUREMENTS: Septal thickness 1.3, left ventricular internal diameter in diastole 4.6, left ventricular internal diameter in systole 3.5, aortic root 3.7, left atrium 3.7. SUMMARY: 1. Fair quality study. 2. Aortic valve is trileaflet and opens normally on 2-dimensional images. The peak gradient across the aortic valve is 12 mmHg. Mitral, tricuspid and pulmonic valves are without evidence of structural abnormality with trace mitral regurgitation and mild pulmonic insufficiency. The aortic root is normal in size. 3. Normal left ventricular chamber size with mild concentric left hypertrophy is suggested. The estimated left ventricular ejection fraction is approximately 50%. No focal wall motion abnormality is evident. Doppler suggests grade 1 left ventricular diastolic dysfunction. Left atrium is upper normal in size. The right atrium and right ventricle are normal in size with grossly preserved right ventricular systolic function. 4. No pericardial effusion. 5. Appearance of inferior vena cava suggests normal central venous pressure. CONCLUSIONS: 1. No significant valvular abnormality evident. 2. Mild concentric left hypertrophy with estimated left ventricular ejection fraction of approximately 50%. 3. Grade 1 left ventricular diastolic dysfunction is suggested. cc: MD Albino Marshall MD
[2019-07-08] MEDS: KLONOPIN PO PRN ×2 (00:42→20:40)
[2019-07-08] MEDS: ZOSYN 3.375 GM in NS 50 ML IV SCH ×4 (03:21→22:51)
[2019-07-08 06:05] LABS: BASO# 0.02 X1000 (0.0-0.2); BASO% 0.5 % (0.0-0.8); EOS# 0.12 X1000 (0.0-0.7); IMM GRAN# 0.04 X1000 (0.0-0.04); LYMPH# 1.27 X1000 (1.2-3.4); LYMPH% 31.9 % (20.5-51.1); MCH 29.2 PG (27-31); MCHC 33.3 g/dL (33-37); MCV 87.6 FL (81-99); MONO# 0.49 X1000 (0.11-0.59); MONO% 12.3 % (1.7-9.3); MPV 13.5 FL (7.4-10.4); NEUT# 2.04 X1000 (1.4-6.5); NEUT% 51.3 % (42.2-75.2); PLT 87 X1000 (130-400); RBC 2.74 XMIL (4.2-5.4); RDW 14.8 % (11.5-14.5); WBC 3.98 X1000 (4.8-10.8)
[2019-07-08 06:15] LABS: ALB/GLOB RATIO 0.9; CALCIUM 7.5 mg/dL (8.8-10.2); MAGNESIUM 1.4 mg/dL (1.5-2.7); TOTAL BILIRUBIN 3.51 mg/dL (0.20-1.00); TOTAL PROTEIN 4.2 g/dL (6.3-8.3)
[2019-07-08] MEDS: PRILOSEC PO SCH (06:25)
[2019-07-08 06:33] LABS: INR 1.55; PROTIME 18.9 Seconds (11.0-16.0)
[2019-07-08] MEDS: SODIUM BICARBONATE 8.4% 150 MEQ in D5W 1,000 ML IV SCH ×4 (07:30→20:36)
[2019-07-08] MEDS: WELCHOL PO SCH ×2 (08:17→20:37)
[2019-07-08] MEDS: LOVENOX SUBQ SCH ×2 (08:18→20:37)
[2019-07-08] MEDS: LOMOTIL PO SCH ×2 (08:19→20:37)
[2019-07-08] MEDS ORDERED: COUMADIN PO ONE (10:16)
[2019-07-08] MEDS ORDERED: KLOR-CON PO ONE (10:32)
--- NOTE | 2019-07-08 10:59 | PROGRESS NOTE ---
DATE: 07/08/2019 CURRENT TIME: 1010 hours. CHIEF COMPLAINT: Did not sleep well. VITAL SIGNS: Temperature 97.5 degrees, pulse 79, respirations 20, blood pressure 121/67, O2 saturations 98% on room air. Urine output 1350 mL. She has consumed approximately 75% of her meals. She has had several loose to liquid bowel movements. LABORATORY DATA: White blood count was 3.98, hemoglobin and hematocrit 8 and 24, MCV 87, platelets were 87,000. Sodium 141, potassium 3.0, CO2 is 21, anion gap 17, BUN and creatinine 61/5.0, blood sugar 131, magnesium 1.4, total bilirubin 3.51, AST 32, ALT 53, alkaline phosphatase 91, protein 4.2, and albumin 2.0. IMAGING: MRI of the brain is still pending. PHYSICAL THERAPY: Patient was sat up on the side of the bed by physical therapy. They performed passive exercises with her extremities. PHYSICAL EXAMINATION: General: Shows a well-developed, white female, who is sitting up on the side of the bed currently. She was assisted back into bed with myself and the physical therapist. She seems much more animated in her face. She contributes to conversation today, she smiles. She is somewhat tearful at times. She has normal facial symmetry. Lungs: Clear with no wheezes, rales, rhonchi. Heart: Regular rate and rhythm. No murmur or gallop. Abdomen: Soft, nontender, no masses. Musculoskeletal/Neurological: She has 4/5 motor strength of the left upper extremity. The left lower extremity is approximately 1-2/5 motor strength. She has approximately 2/5 plantar flexion of the foot. She has approximately 1/5 extension at the knee of the lower extremity. She has the 0/5 abduction at the hip. IMPRESSION: 1. Certainly clinically she appears to have had a cerebrovascular accident involving the right brain with left hemiparesis, magnetic resonance imaging is pending to confirm this. 2. Chronic kidney disease with acute exacerbation. Creatinine has inched up, urine output is good. 3. She does not meet criteria for dialysis. I have discussed with Dr. Rivas. 4. Hyperbilirubinemia is much improved post endoscopic retrograde cholangiopancreatography and stone removal. 5. Sepsis seems to be responding. The Escherichia coli extended-spectrum beta-lactamase is sensitive to Zosyn, will continue IV for now. 6. Overall, she is slightly depressed, a combination of the stroke and not being able to see her family members. PLAN: 1. Will continue current antibiotics. 2. Continue current IV fluids. We will allow Dr. Rivas to adjust per his desire. 3. Will await the MRI of the brain today. 4. Will give additional doses of dexamethasone today. 5. Will continue to encourage physical therapy as much as possible. 6. I will discuss with her family in [place]. cc: Albino Pulido MD
[2019-07-08] MEDS: DECADRON 20 MG in NS 50 ML IV SCH ×2 (11:37→20:39)
--- NOTE | 2019-07-08 12:13 | NEPHROLOGY PROGRESS NOTE ---
DATE: 07/08/2019 SUBJECTIVE: She feels better today. More interactive. Dr. Pulido feels that she had a stroke. Symptoms are improved today, however. OBJECTIVE: Blood pressure 121/67, heart rate 79, respirations 20, afebrile. Generally in no acute distress. Skin is warm and dry. Neck veins are not distended. Heart is regular. Lungs are equal. No crackles. Extremities, no edema, clubbing or cyanosis. IMPRESSION: 1. Acute kidney injury overlying chronic kidney disease. Labs are roughly stable over the last 48 hours. Good urine output. Volume status appears euvolemic. 2. Electrolytes. Moderate hypokalemia. Will replace. 3. Metabolic acidosis. Continue current treatment with IV bicarbonate. cc: MD Albino Davidson MD
[2019-07-08] MEDS ORDERED: SODIUM CHLORIDE 0.9% INJ SCH (15:45)
[2019-07-08] MEDS ORDERED: SODIUM CHLORIDE 0.9% 10 ML ONE (16:30)
[2019-07-08] MEDS: PROTONIX IV SCH (16:30)
--- NOTE | 2019-07-08 16:36 | GASTROENTEROLOGY PROGRESS NOTE ---
DATE: 07/08/2019 SUBJECTIVE: Patient is resting in bed. She denies any fevers, rigors, chills. She denies any nausea or vomiting. She is moving her bowels. The last bowel movement was today. She has poor oral intake today. I spoke to the patient's nurse as well. There is also concern for possible CVA with left hemiparesis. Dr. Pulido is following. OBJECTIVE: Vital signs: Temperature 97.4 degrees, pulse rate 82, respiratory rate 20, blood pressure 139/75, saturating 100% on room air. Body weight of 192 pounds 4 ounces, BMI 27.6 kg/m2. General Appearance: Moderately built, moderately nourished, lying in bed, in no acute distress. HEENT: Positive pallor. Positive icterus. Neck: Supple. Abdomen: Soft, nontender, nondistended. No guarding. Extremities: No cyanosis or clubbing. Neurologic: She is awake and answers simple questions. LABORATORY: Hemoglobin and hematocrit is 8 and 24, white count of 3.98 platelet count of 87,000. INR 1.5, PT of 18.9. Sodium of 141, potassium is 3.0, chloride of 103, bicarbonate of 21, anion gap of 17 BUN of 61, creatinine of 5, glucose of 131, calcium 7.5. Magnesium 1.4. Total bilirubin is 3.51 is trending down. AST 32, ALT 53, alkaline phosphatase 91, total protein is 4.2, albumin of 2. Lactate of 0.9, amylase of 16, lipase of 18, B12 of 1661, and stool culture negative stool for white cells, few. Urine culture no growth. Clostridium difficile toxin negative. Blood culture first time on admission showed evidence of Escherichia coli, and she had ESBL positive, it is sensitive to amikacin, gentamicin, imipenem, Levaquin, levofloxacin, tobramycin and is resistant to Bactrim. IMPRESSION AND PLAN: 1. Ascending cholangitis status post endoscopic retrograde cholangiopancreatography with stone removal with Dr. Babin on last . 2. Choledocholithiasis. 3. Gram-negative bacteremia and Escherichia coli positive extended-spectrum beta-lactamase noted on blood culture final report. 4. Chronic kidney disease. 5. Atrial fibrillation. 6. Concern for a cerebrovascular accident. 7. History of gastric bypass. 8. Anemia of chronic disease. 9. Thrombocytopenia. 10. 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 RECOMMENDATIONS: Her liver enzymes are trending down status post ERCP. She will need to follow up with Dr. Babin as an outpatient in 4 to 6 weeks for ERCP with stent removal. She is on Coumadin and Lovenox per the primary care team. She has anemia, which is chronic. We will start her on Iron-C b.i.d. and multivitamin once daily. She has previous history of reflux disease. We will switch her to Protonix once daily. She is on a GI soft diet. An MRI of the brain has been ordered to evaluate for CVA, which will likely be done on Wednesday. She is being followed by Dr. Rivas for chronic renal insufficiency. This could also be contributing to her anemia, but since she is coagulopathic secondary to Coumadin and Lovenox, the risk of GI bleeding is high so we will switch her to IV Protonix for now. The above plans discussed with the patient and the nursing staff and all questions answered. Please call with any further questions. cc: MD Ablino Myers MD Reginald D. Gladish, MD
[2019-07-08] MEDS: COUMADIN PO SCH (20:37)
[2019-07-08] MEDS: ICAR-C PO SCH (20:37)
[2019-07-08] MEDS ORDERED: KLONOPIN PO PRN (20:47)
[2019-07-09] MEDS: ZOSYN 3.375 GM in NS 50 ML IV SCH ×3 (03:36→16:08)
[2019-07-09 05:56] LABS: BASO# 0.02 X1000 (0.0-0.2); BASO% 0.5 % (0.0-0.8); HEMATOCRIT 25.1 % (37.0-47.0); HEMOGLOBIN 8.4 g/dL (12.0-16.0); IMM GRAN# 0.05 X1000 (0.0-0.04); IMM GRAN% 1.3 % (0.0-0.5); LYMPH# 1.06 X1000 (1.2-3.4); LYMPH% 26.9 % (20.5-51.1); MCH 29.3 PG (27-31); MCHC 33.5 g/dL (33-37); MCV 87.5 FL (81-99); MONO# 0.17 X1000 (0.11-0.59); MONO% 4.3 % (1.7-9.3); MPV 13.9 FL (7.4-10.4); NEUT# 2.64 X1000 (1.4-6.5); PLT 115 X1000 (130-400); RBC 2.87 XMIL (4.2-5.4); RDW 14.6 % (11.5-14.5); WBC 3.94 X1000 (4.8-10.8)
[2019-07-09 06:05] LABS: ALB/GLOB RATIO 0.8; ALBUMIN 2.2 g/dL (3.5-5.0); CALCIUM 7.5 mg/dL (8.8-10.2); CREATININE 4.6 mg/dL (0.5-0.9); POTASSIUM 3.2 mmol/L (3.5-5.1); TOTAL BILIRUBIN 2.16 mg/dL (0.20-1.00); TOTAL PROTEIN 4.9 g/dL (6.3-8.3)
[2019-07-09] MEDS: LOVENOX SUBQ SCH (06:49)
[2019-07-09] MEDS: SODIUM BICARBONATE 8.4% 150 MEQ in D5W 1,000 ML IV SCH (06:49)
[2019-07-09] MEDS: ZOFRAN IV PRN (07:47)
[2019-07-09] MEDS ORDERED: SODIUM BICARBONATE 8.4% 150 MEQ in D5W 1,000 ML IV SCH (08:26)
[2019-07-09] MEDS: DECADRON 20 MG in NS 50 ML IV SCH ×2 (08:45→23:45)
[2019-07-09] MEDS: LOMOTIL PO SCH (08:45)
[2019-07-09] MEDS: ICAR-C PO SCH (08:46)
[2019-07-09] MEDS: WELCHOL PO SCH (08:46)
[2019-07-09] MEDS ORDERED: CENTRUM SILVER PO SCH (09:00)
--- NOTE | 2019-07-09 09:01 | PROGRESS NOTE ---
DATE: 07/09/2019 TIME OF EXAMINATION: 8:10 a.m. CHIEF COMPLAINT: Patient states she feels funny and is nauseous. OBJECTIVE: Vital Signs: Temperature is 97.7 degrees, pulse is 81, respiratory rate is slightly increased at 24, blood pressure 140/82, O2 saturation is 95% on room air. Urine output overnight, 1050 mL. Laboratory Data: Sodium 142, potassium 3.2, BUN and creatinine 59 and 4.6. Total bilirubin 2.16, AST 40, ALT 56, alkaline phosphatase 114. Physical Examination: The patient is lying in bed with an emesis basin close at hand. There is some biliary vomitus on her nightgown. She responds appropriately to my questions in a very dull, flattened voice. The left corner of her mouth seems to be down. Lungs appear clear. She is in no respiratory distress. Pupils are equally round and reactive. Oropharynx: Tongue is midline. Neck: Supple. Lungs are clear with no wheeze, rales, rhonchi. Heart at times irregularly irregular. Telemetry shows atrial fibrillation with controlled ventricular response. Abdomen is soft and nontender. Musculoskeletal and Neurological: As stated, she does respond in dull tone to affect appropriately. She has 5/5 motor strength on the right upper and lower extremity. She has approximately 5/5 strength in the left upper extremity. The left lower extremity, she has approximately 1/5 strength of flexion at the hip, 1/5 flexion and extension of the knee, and 2/5 flexion and dorsiflexion of the left foot. IMPRESSION: 1. The patient has clearly had a change in her mental status exam from last evening. She has had an intravenous dose of Zofran 4 mg. This has not bothered her in this manner in the past. She may have very well had an extension of her stroke. MRI is planned for today at 9 o'clock. I feel that we should proceed with that. 2. Her BUN and creatinine have finally showed a downward turn today. Creatinine has dropped from 5.0 to 4.6. 3. Total bilirubin continues to decline, dropping to 2.16. She has a minor elevation of her liver enzymes. PLAN: 1. We will transfer her to ICU. 2. We will proceed with MRI of the brain if technically possible. 3. We will continue her current therapy. We will decrease her IV fluids to KVO. I do not feel like we need to try to diurese her at this point. I will leave that to Dr. Rivas's discretion. 4. Overall, I am concerned about her neurological decline. We will wait and see what the MRI has to share with this. cc: Albino Pulido MD
--- NOTE | 2019-07-09 09:51 | Diag Imaging Result Doc PS360 ---
EXAM: MRI BRAIN W/O CONTRAST 07/09/2019 HISTORY: CVA, Left hemiparesis TECHNIQUE: T1 sagittal and axial, axial T2, FLAIR, DWI and coronal gradient echo. COMMENT: There is a mass with heterogeneously increased T2-weighted signal intensity in the body of the corpus callosum with a cystic element seen slightly to the right of the midline measuring almost 13 mm in superior-inferior dimension and 14 x 16 mm in axial dimension. There is some associated restricted diffusion in this area as well is in punctate areas in the cortex and subcortical white matter of the convexities of both hemispheres. There is some increase in T2-weighted signal intensity on the FLAIR images in the right lateral ventricle as well as some restricted diffusion in the posterior horn which may be due to old blood within the ventricle. This is not increased in signal intensity on the T1-weighted images and was not visible on the recent CT of 07/07/2019. Further evaluation with contrast is recommended. 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 Advise further evaluation with contrast. Electronically signed by Vineet Barrera 07/09/2019 9:48 AM
[2019-07-09] MEDS ORDERED: PHENERGAN IV PRN (09:53)
[2019-07-09] MEDS ORDERED: SODIUM CHLORIDE 0.9% INJ PRN (09:53)
[2019-07-09] MEDS ORDERED: APRESOLINE IV PRN (11:09)
[2019-07-09] MEDS ORDERED: LABETALOL IV ONE (11:11)
[2019-07-09 11:24] LABS: INR 5.07; PROTIME 48.7 Seconds (11.0-16.0)
--- NOTE | 2019-07-09 12:11 | PROGRESS NOTE ---
DATE: 07/09/2019 CURRENT TIME: 1120 hours. CHIEF COMPLAINT: Transferred to ICU. CURRENT VITAL SIGNS: Include blood pressure 160/90, heart rate 83, O2 saturation 96% on 2 L. IMAGING: MRI of the brain without contrast revealed what was read as a mass with heterogeneously increased T2 weighted images in the area of the corpus callosum with a cystic element to the right of midline, measuring 13 mm, 14 x 16 mm in dimensions. There are some areas around the tumor that appear to be consistent with old blood. There was no contrast used with this imaging due to renal disease. The belief was suggestive of a primary glioma with perhaps some perilesional hemorrhage. PHYSICAL EXAMINATION: General: The patient is in ICU. She has received a dose of Phenergan for nausea and vomiting. She does respond to stimuli. She is breathing without difficulty. Lungs: Clear. Heart: Regular rate and rhythm. She is in normal sinus rhythm. Abdomen: Soft. Musculoskeletal: She does move her right side. The left side is weak in her left upper extremity. She has essentially no movement in the left lower extremity at this time, but she is sedated. IMPRESSION: Deteriorating mental status in face of what now appears to be a mass in the corpus callosum on the right, with perhaps some perilesional hemorrhage. Decision has been made to transfer the patient to [facility] in [place]. I have had phone call conversations with Dr. Christopher Arreola, also with a nurse practitioner named Yesika with [facility], who are neurosurgeons on-call. Ms. Avila will be transferred to [facility] under the care of their hospitalist today, Christopher Arreola. I will also discuss this with her family. cc: Albino Pulido MD
--- NOTE | 2019-07-09 12:51 | DISCHARGE SUMMARY ---
ADMISSION DATE: 07/04/2019 DISCHARGE DATE: 07/09/2019 CURRENT TIME: 1120 hours. PRIMARY DISCHARGE DIAGNOSIS: Obstructed common bile duct with hyperbilirubinemia and sepsis. OTHER DIAGNOSES: 1. Escherichia coli sepsis. 2. Chronic kidney disease with acute exacerbation. 3. Remote history of deep venous thrombosis/pulmonary thromboembolism, on chronic Coumadin therapy. 4. Right-sided corpus callosum mass, suggestive of primary glioma with some perilesional hemorrhage resulting in left hemiparesis and mental status change. PRIMARY PROCEDURE PERFORMED: Intravenous fluid resuscitation. OTHER PROCEDURES: ERCP with common duct stone extraction, CT of the head without contrast, MRI of the head without contrast. DISPOSITION: The patient will be transferred to [facility] in [place] under the care of their hospitalist program with the receiving doctor of Christopher Arreola. Also, the neurosurgeons, [facility], will be consulted. ADMISSION LABORATORY DATA: Sodium was 134, potassium was 3.5, BUN and creatinine 67 and 43 respectively. Total bilirubin was 6.30. AST 83, ALT 157, alkaline phosphatase 139, total protein 5.2, albumin 2.6. At the time of discharge, sodium was 142, potassium was 3.2, chloride 100, CO2 was 24, BUN was 59, creatinine 4.6. The creatinine had reached a peak of 5.0, had dropped to 4.6 today. Total bilirubin dropped to 2.17. AST 40, ALT 56, alkaline phosphatase 114. Blood cultures grew E. coli, sensitive to amikacin, gentamicin, imipenem, levofloxacin, tobramycin; resistant to sulfa. It is positive for ESBL. Urine culture was negative. CT of the head was negative. HOSPITAL COURSE: The patient was admitted, cultured, placed on IV Rocephin. She was in chronic renal failure with acute exacerbation. She was dehydrated. She was hyperbilirubinemic. CT without contrast revealed a common duct stone. Gastroenterology was consulted. Dr. Babin carried the patient to surgery on and performed an ERCP with successful extraction of the stone and placement of stent. Her anticoagulation therapy was held for 24 hours and reinstituted on Wednesday. Wednesday, she developed change in mental status with resulting left- sided weakness. Over the course of the next 12 hours, the left upper arm resolved back to normal. The left lower extremity remained somewhat weak, approximately 4/5. She continued to improve until Dionicio morning when she had a second event of deterioration of mental function. She became very dulled and flattened in her affect. She would respond appropriately to questions. The left lower extremity was weaker with approximately 1-2/5 motor strength. The left upper extremity was approximately 3/5. MRI of the brain was performed without contrast which revealed the above-mentioned lesion in the right corpus callosum area. Discussion was made with family about transferring to [place] where they would be closer to her for care. She also may need some neurosurgical intervention which we do not offer here in [place]. Arrangements were made for her to be transferred to [facility] under the care of their hospitalist program with Christopher Arreola being the consulting physician. cc: Albino Pulido MD
--- NOTE | 2019-07-09 14:55 | DISCHARGE SUMMARY ---
ADMISSION DATE: 07/04/2019 DISCHARGE DATE: 07/09/2019 ADDENDUM: CURRENT TIME: 1430. Arrangements had been made for her to be transferred to [place] for further neurosurgical evaluation. Her condition quickly deteriorated and she is currently now experiencing agonal respirations. VITAL SIGNS: Heart rate is 70, respirations 16 and agonal, blood pressure 154/68. PHYSICAL EXAMINATION: The patient is unresponsive. She does not respond to a sternal rub. She moves no extremities. She is breathing agonally. IMPRESSION: 1. Patient is end of life, most likely due to hemorrhage in the brain around the tumor that was found this morning on MRI scan. 2. I have had a long discussion with family, whom I am very close to, who live in [place]. I explained the situation that Violetta was most likely at the end of her life. They did not want resuscitative efforts and they did not want her to be intubated or put on life support. In view of the gravity of the situation, I feel that is an appropriate decision and will honor it. The family is debating on whether they want to drive to [place] and then they will have an opportunity to be a part of her end of life in a private room. cc: Albino Pulido MD MTDD
[2019-07-09] MEDS ORDERED: VITAMIN K 10 MG in NS 50 ML IV STA (15:05)
[2019-07-09 16:03] VITALS: BP 151/74
[2019-07-09] MEDS: PROTONIX IV SCH (16:08)
[2019-07-09 16:44] LABS: URINE SOURCE CATH
[2019-07-09 16:50] LABS: BILIRUBIN URINE NEGATIVE (NEGATIVE); BLOOD URINE SMALL (NEGATIVE); COLOR YELLOW; GLUCOSE URINE NEGATIVE (NEGATIVE); KETONE URINE NEGATIVE (NEGATIVE); LEUKOCYTES URINE NEGATIVE (NEGATIVE); NITRITE URINE NEGATIVE (NEGATIVE); PROTEIN URINE 30 mg/dL (NEGATIVE); SP GRAVITY URINE 1.015; TURBIDITY URINE CLEAR (CLEAR); UROBILINOGEN URINE NORMAL (NORMAL)
[2019-07-09 16:52] LABS: UR EPITHELIAL CELLS <10 /HPF (<10); URINE BACTERIA NEGATIVE /HPF; URINE RBC <10 /HPF (<10); URINE WBC <10 /HPF (<10)
--- NOTE | 2019-07-09 21:33 | DISCHARGE SUMMARY ---
ADMISSION DATE: 07/04/2019 DISCHARGE DATE: ADDENDUM: Previously, the patient had been discharged to be transferred to [facility] in [place]. Arrangements had been made for such transfer. Upon arrival of the ambulance to carry her, her condition had greatly deteriorated and she was in agonal rhythm and it did not seem appropriate to be transferring her in such a state and the family elected to keep her here in [place]. The family did not wish her to be resuscitated so no resuscitative measures were undertaken. Patient was moved to a private room for comfort care. Family is at bedside. The patient quietly with family at bedside at 2110 hours. PRIMARY CAUSE OF : 1. 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 2. Escherichia coli sepsis. 3. Chronic kidney disease with acute exacerbation. 4. Remote history of deep vein thrombosis/pulmonary thromboembolism, on chronic Coumadin therapy. PLAN: Body will be released to [facility] in [place], [place]. cc: Albino Pulido MD
--- NOTE | 2019-07-10 07:34 | EKG Report ---
Test Performed on : 07/09/2019 08:27:40 AM Test Reason : sob Blood Pressure : / mmHG Vent. Rate : 076 BPM Atrial Rate : 076 BPM P-R Int : 106 ms QRS Dur : 088 ms QT Int : 450 ms P-R-T Axes : 017 -17 -03 degrees QTc Int : 506 ms Sinus rhythm. with short CA with premature supraventricular complexes. Voltage criteria for left ventricular hypertrophy Nonspecific ST and T wave abnormality Prolonged QT Abnormal ECG No previous ECGs available Confirmed by Lima GRACE, Germain Reyez ([id number]) on 07/10/2019 4:48:05 PM
--- NOTE | 2019-07-11 08:27 | Carotid Study ---
DATE: 07/07/2019 PROCEDURE: Bilateral duplex and color flow imaging of the carotid arteries performed using the [employer] vivid E9 ultrasound system with a 9 L-D transducer. REFERRING PHYSICIAN: Dr. Albino Pulido. IDENTIFICATION: A 68-year-old female. BARREL REAMER: Jacob. INDICATION: Transient ischemic attack. FINDINGS: The velocities in cm/sec of both carotid systems were reviewed. There was forward flow in both vertebral arteries, and the right ICA/CCA ratio is 1.23, corresponding to a percent stenosis of 0% to 39%. The left ICA/CCA ratio is 1.34, corresponding to a percent stenosis of 0% to 39%. INTERPRETATION: Mild atherosclerotic disease of the distal common and internal carotid artery bilaterally, without evidence of a hemodynamically significant lesion in either carotid system. cc: MD Albino Chan MD
--- NOTE | 2019-07-11 08:37 | Extremity Venous Study ---
PROCEDURE NAME: Venous U/S Bilateral Legs - 07/07/2019 PROCEDURE: Bilateral lower extremity venous duplex and color flow imaging study using the [employer] vivid E9 ultrasound system with 9L-D transducer. REFERRING PHYSICIAN: Dr. Albino Pulido. INCOME TAX PREPARER: Jacob. INDICATIONS: History of DVT, swelling and pain of lower extremities suggestive of deep venous thrombosis. FINDINGS: The right common femoral vein and its branches, deep and superficial femoral veins were satisfactorily imaged. They had flow through them and were compressible. Right popliteal vein and the deep veins below the right knee were all compressible and had flow through them. The superficial veins of the right lower extremity were compressible throughout their length. The left common femoral vein and its branches, deep and superficial femoral veins, were also satisfactorily imaged. They had flow through them and were compressible. Left popliteal vein and the deep veins below the left knee were all compressible and had flow through them. The superficial veins of the left lower extremity were compressible throughout their length. INTERPRETATION: No evidence of acute deep or superficial venous thrombosis of the bilateral lower extremities. cc: MD Albino Chan MD
== END 2019-07-09 21:10 | disposition expired | DRG 871 ==
LOC: DIRADM 15:14 → 4N 16:21 → ICU 07-09 09:41 → 4N 07-09 16:52
PROVIDERS: ADMIT Family Medicine; ATTEND Family Medicine
PROC: EN.ERCP (2019-07-06 11:40)